=== PATIENT | male | born 1995 | race Two or more races ===

== ENCOUNTER 2016-11-08 01:24 | Emergency (ER) | payer OTHER ==
--- NOTE | 2016-11-08 02:24 | EDDOCDS ---
Nurse's Notes [facility] Name: Casper Currie Age: 21 yrs Sex: Male : 1995 Arrival Date: 11/08/2016 Time: 01:24 Bed TR1 Private MD: Diagnosis: Strain of muscle and tendon of front wall of thorax;Strain of muscle and tendon of back wall of thorax Presentation: 11/08 01:30 Presenting complaint: Patient states: fell on snow board last Saturday, seen at [facility] and given meds, pain over all getting worse, first in back and ribs, now pain that was under left shoulder blade moving into front, mid sternum, comes and goes and is sometimes excruciating and debilitating. Aspirin was not taken prior to arrival. Adult Sepsis Screening: The patient does not have new or worsening altered mentation. Patient's respiratory rate is less than 22. Systolic blood pressure is greater than 100. Patient has a qSOFA score of 0- Negative Sepsis Screen. Suicide/Homicide risk assessment- the patient denies having any suicidal and/or homicidal ideations and does not present with any other emotional, behavioral or mental health complaints. 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 Transition of care: patient was not received from another setting of care. 01:30 Acuity: KING Level 4 [facility] 01:30 Method Of Arrival: Walkin/Carried/Asstd [facility] Triage Assessment: 01:38 General: Appears in no apparent distress, comfortable, Behavior is appropriate for age, [facility] cooperative. Pain: Location: back and chest Pain currently is 9 out of 10 on a pain scale. HIV screening NA for this visit Offered previously. Cardiovascular: Chest pain is described as severe, radiates Does not radiate. episodes are intermittent began comes and goes worse at times, spasmodic is aggravated by. Historical: - Allergies: no known allergies; - Home Meds: 1. Methocarbamol Unknown Oral 1 tab twice a day (Last dose: 11/07/2016 08:00) 2. Tylenol 500 mg Oral 1 tab twice a day (Last dose: 11/07/2016 08:00) 3. Naproxen Unknown Oral 1 tab 2 times per day (Last dose: 11/07/2016 08:00) 4. Flexeril Oral nightly (Last dose: 11/06/2016) - PMHx: none; - PSHx: Appendectomy; - Social history: Smoking status: Patient states was never smoker of tobacco. No barriers to communication noted. - Family history: Not pertinent. - : The pt / caregiver states he / she is not on anticoagulants. Home medication list is obtained from the patient. - Exposure Risk Screening:: None identified. Screenin:19 Screening information is obtained from the patient. Fall risk: No risks identified. [facility] Assistance ADL's: requires no assistance with activities of daily living. Abuse/DV Screen: The patient / caregiver reports he/she is: not in a situation that causes fear, pain or injury. Nutritional screening: No deficits noted. Advance Directives: There is no active DNR order. home support is adequate. Assessment: 02:19 General: Appears in no apparent distress, comfortable, Behavior is appropriate for age, [facility] cooperative. Cardiovascular: Rhythm is regular Chest pain intermittent after snow boarding accident, seen at [facility] twice, xrays x 2. Respiratory: Airway is patent Respiratory effort is even, unlabored, Respiratory pattern is regular, symmetrical. Derm: Skin is pink, warm & dry. Vital Signs: 01:29 BP 131 / 70; Pulse 64; Resp 16; Temp 97.7; Pulse Ox 98% ; Weight 92.99 kg; Height 6 ft. [facility] (182.88 cm); Pain 9/10; 01:29 Body Mass Index 27.80 (92.99 kg, 182.88 cm) [facility] Vitals: 01:29 Log In Time: November 08, 2016 at 01:24. [facility] ED Course: 01:25 Patient visited by Argelia Hughes. gjb 01:25 Patient moved to Waiting gjb 01:34 Triage Initiated cj 01:35 Kenneth New PA is PHCP. btw 01:35 Amarilys He MD is Attending Physician. btw 01:39 Patient moved to Pre RCE ajs 01:40 Patient visited by Kenneth New PA. btw 01:40 Patient moved to Triage 1 [facility] 01:49 Tee Victoria [facility] is Referral Physician. btw 01:56 [facility] Payment Agreement was scanned into [employer] and attached to record. hs2 01:58 Patient moved to TR1 btw 02:19 The patient / caregiver is instructed regarding the plan of care and ED course. Cardiac [facility] monitoring not applicable on this patient. seen and evaluated by JAKUB. 02:19 No IV's were initiated during this patient's visit. No procedures done that require cj assistance. Order Results: There are currently no results for this order. Outcome: 01:49 Discharge ordered by Provider. btw 02:19 Discharge Assessment: Patient awake, alert and oriented x 3. No cognitive and/or cjh functional deficits noted. Patient verbalized understanding of disposition instructions. patient administered narcotics - no. The following High Risk Discharge criteria are identified: None. Discharged to home ambulatory. Condition: good Condition: stable Condition: improved. Discharge instructions given to patient, Instructed on discharge instructions, follow up and referral plans. medication usage, Demonstrated understanding of instructions, medications, Pt was receptive of discharge instructions/ teaching. Prescriptions given X 2. No special radiology studies were completed. Property :Personal belongings accompany Pt. 02:23 Patient left the ED. [facility] Signatures: Kenneth New PA PA btw Slate, Amanda ajs Hafner, Jane, RN RN Argelia Quintana Hillary, Reg Reg hs2 CARLOS
--- NOTE | 2016-11-08 02:24 | EDDOCDS ---
Physician Documentation [facility] Name: Casper Currie Age: 21 yrs Sex: Male : 1995 Arrival Date: 11/08/2016 Time: 01:24 Bed TR1 Private MD: Disposition: 11/08/16 01:49 Discharged to Home/Self Care. Impression: Strain of muscle and tendon of front wall of thorax, Strain of muscle and tendon of back wall of thorax. - Condition is Stable. - Discharge Instructions: Costochondritis, Bxvs-dh-[id number], Thoracic Strain, Zueo-co-Aofd. - Prescriptions for Diclofenac Sodium 75 mg Oral Tablet, Delayed Release (E.C.) - take 1 tablet by ORAL route 2 times per day; 30 tablet. - Medication Reconciliation, Local Pharmacy Hours form. - Follow up: Tee Victoria [facility]; When: Today; Reason: Further diagnostic work-up, Recheck today's complaints, Continuance of care. - Problem is an ongoing problem. - Symptoms are unchanged. Historical: - Allergies: no known allergies; - Home Meds: 1. Methocarbamol Unknown Oral 1 tab twice a day (Last dose: 11/07/2016 08:00) 2. Tylenol 500 mg Oral 1 tab twice a day (Last dose: 11/07/2016 08:00) 3. Naproxen Unknown Oral 1 tab 2 times per day (Last dose: 11/07/2016 08:00) 4. Flexeril Oral nightly (Last dose: 11/06/2016) - PMHx: none; - PSHx: Appendectomy; - Social history: Smoking status: Patient states was never smoker of tobacco. No barriers to communication noted. - Family history: Not pertinent. - : The pt / caregiver states he / she is not on anticoagulants. Home medication list is obtained from the patient. - Exposure Risk Screening:: None identified. Vital Signs: 11/08 01:29 BP 131 / 70; Pulse 64; Resp 16; Temp 97.7; Pulse Ox 98% ; Weight 92.99 kg / 205.01 lbs; [facility] Height 6 ft. (182.88 cm); Pain 9/10; 01:29 Body Mass Index 27.80 (92.99 kg, 182.88 cm) [facility] MDM: 01:55 Financial registration complete. hs2 01:56 [facility] Payment Agreement was scanned into [employer] and attached to record. hs2 Signatures: Kenneth New PA PA btw Hafner, Jane, RN RN [facility] Ofelia Martinez, Reg Reg hs2 The chart was reviewed and I authenticate all verbal orders and agree with the evaluation and treatment provided.Attachments: 01:56 [facility] Payment Agreement hs2 MTDD
--- NOTE | 2016-11-10 03:24 | EDDOCDS ---
Physician Documentation [facility] Name: Casper Currie Age: 21 yrs Sex: Male : 1995 Arrival Date: 11/08/2016 Time: 01:24 Bed TR1 Private MD: Disposition: 11/08/16 01:49 Discharged to Home/Self Care. Impression: Strain of muscle and tendon of front wall of thorax, Strain of muscle and tendon of back wall of thorax. - Condition is Stable. - Discharge Instructions: Costochondritis, Flxi-gh-Qgbl, Thoracic Strain, Gpzi-hd-Dyfi. - Prescriptions for Diclofenac Sodium 75 mg Oral Tablet, Delayed Release (E.C.) - take 1 tablet by ORAL route 2 times per day; 30 tablet. - Medication Reconciliation, Local Pharmacy Hours form. - Follow up: Tee Victoria [facility]; When: Today; Reason: Further diagnostic work-up, Recheck today's complaints, Continuance of care. - Problem is an ongoing problem. - Symptoms are unchanged. Historical: - Allergies: no known allergies; - Home Meds: 1. Methocarbamol Unknown Oral 1 tab twice a day (Last dose: 11/07/2016 08:00) 2. Tylenol 500 mg Oral 1 tab twice a day (Last dose: 11/07/2016 08:00) 3. Naproxen Unknown Oral 1 tab 2 times per day (Last dose: 11/07/2016 08:00) 4. Flexeril Oral nightly (Last dose: 11/06/2016) - PMHx: none; - PSHx: Appendectomy; - Social history: Smoking status: Patient states was never smoker of tobacco. No barriers to communication noted. - Family history: Not pertinent. - : The pt / caregiver states he / she is not on anticoagulants. Home medication list is obtained from the patient. - Exposure Risk Screening:: None identified. Vital Signs: 11/08 01:29 BP 131 / 70; Pulse 64; Resp 16; Temp 97.7; Pulse Ox 98% ; Weight 92.99 kg / 205.01 lbs; [facility] Height 6 ft. (182.88 cm); Pain 9/10; 01:29 Body Mass Index 27.80 (92.99 kg, 182.88 cm) [facility] MDM: 01:55 Financial registration complete. hs2 01:56 [facility] Payment Agreement was scanned into [employer] and attached to record. hs2 13:53 T-Sheet-- Draft Copy was scanned into [employer] and attached to record. gb Signatures: Aby Kenny, Reg Reg gb Kenneth New PA PA btw Hafner, Jane, RN RN [facility] Ofelia Martinez, Reg Reg hs2 The chart was reviewed and I authenticate all verbal orders and agree with the evaluation and treatment provided.Attachments: 01:56 [facility] Payment Agreement hs2 13:53 T-Sheet-- Draft Copy gb Chart Complete MTDD
--- NOTE | 2016-11-10 03:24 | EDDOCDS ---
[facility] Name: Casper Currie Age: 21 yrs Sex: Male : 1995 Arrival Date: 11/08/2016 Time: 01:24 Bed TR1 Private MD: Disposition: 11/08/16 01:49 Discharged to Home/Self Care. Impression: Strain of muscle and tendon of front wall of thorax, Strain of muscle and tendon of back wall of thorax. - Condition is Stable. - Discharge Instructions: Costochondritis, Dtby-zx-Fhpf, Thoracic Strain, Dfbd-qr-Jibr. - Prescriptions for Diclofenac Sodium 75 mg Oral Tablet, Delayed Release (E.C.) - take 1 tablet by ORAL route 2 times per day; 30 tablet. - Medication Reconciliation, Local Pharmacy Hours form. - Follow up: Tee Victoria [facility]; When: Today; Reason: Further diagnostic work-up, Recheck today's complaints, Continuance of care. - Problem is an ongoing problem. - Symptoms are unchanged. Historical: - Allergies: no known allergies; - Home Meds: 1. Methocarbamol Unknown Oral 1 tab twice a day (Last dose: 11/07/2016 08:00) 2. Tylenol 500 mg Oral 1 tab twice a day (Last dose: 11/07/2016 08:00) 3. Naproxen Unknown Oral 1 tab 2 times per day (Last dose: 11/07/2016 08:00) 4. Flexeril Oral nightly (Last dose: 11/06/2016) - PMHx: none; - PSHx: Appendectomy; - Social history: Smoking status: Patient states was never smoker of tobacco. No barriers to communication noted. - Family history: Not pertinent. - : The pt / caregiver states he / she is not on anticoagulants. Home medication list is obtained from the patient. - Exposure Risk Screening:: None identified. Vital Signs: 11/08 01:29 BP 131 / 70; Pulse 64; Resp 16; Temp 97.7; Pulse Ox 98% ; Weight 92.99 kg / 205.01 lbs; [facility] Height 6 ft. (182.88 cm); Pain 9/10; 01:29 Body Mass Index 27.80 (92.99 kg, 182.88 cm) [facility] MDM: 01:55 Financial registration complete. hs2 01:56 [facility] Payment Agreement was scanned into [employer] and attached to record. hs2 13:53 T-Sheet-- Draft Copy was scanned into [employer] and attached to record. gb Signatures: Aby Kenny, Reg Reg gb Kenneth New PA PA btw Hafner, Jane, RN RN [facility] Ofelia Martinez, Reg Reg hs2 The chart was reviewed and I authenticate all verbal orders and agree with the evaluation and treatment provided.Attachments: 01:56 [facility] Payment Agreement hs2 13:53 T-Sheet-- Draft Copy gb Chart Complete MTDD
--- NOTE | 2016-11-10 03:24 | EDDOCDS ---
Nurse's Notes [facility] Name: Casper Currie Age: 21 yrs Sex: Male : 1995 Arrival Date: 11/08/2016 Time: 01:24 Bed TR1 Private MD: Diagnosis: Strain of muscle and tendon of front wall of thorax;Strain of muscle and tendon of back wall of thorax Presentation: 11/08 01:30 Presenting complaint: Patient states: fell on snow board last Saturday, seen at [facility] and given meds, pain over all getting worse, first in back and ribs, now pain that was under left shoulder blade moving into front, mid sternum, comes and goes and is sometimes excruciating and debilitating. Aspirin was not taken prior to arrival. Adult Sepsis Screening: The patient does not have new or worsening altered mentation. Patient's respiratory rate is less than 22. Systolic blood pressure is greater than 100. Patient has a qSOFA score of 0- Negative Sepsis Screen. Suicide/Homicide risk assessment- the patient denies having any suicidal and/or homicidal ideations and does not present with any other emotional, behavioral or mental health complaints. 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 Transition of care: patient was not received from another setting of care. 01:30 Acuity: [facility] Level 4 [facility] 01:30 Method Of Arrival: Walkin/Carried/Asstd [facility] Triage Assessment: 01:38 General: Appears in no apparent distress, comfortable, Behavior is appropriate for age, [facility] cooperative. Pain: Location: back and chest Pain currently is 9 out of 10 on a pain scale. HIV screening NA for this visit Offered previously. Cardiovascular: Chest pain is described as severe, radiates Does not radiate. episodes are intermittent began comes and goes worse at times, spasmodic is aggravated by. Historical: - Allergies: no known allergies; - Home Meds: 1. Methocarbamol Unknown Oral 1 tab twice a day (Last dose: 11/07/2016 08:00) 2. Tylenol 500 mg Oral 1 tab twice a day (Last dose: 11/07/2016 08:00) 3. Naproxen Unknown Oral 1 tab 2 times per day (Last dose: 11/07/2016 08:00) 4. Flexeril Oral nightly (Last dose: 11/06/2016) - PMHx: none; - PSHx: Appendectomy; - Social history: Smoking status: Patient states was never smoker of tobacco. No barriers to communication noted. - Family history: Not pertinent. - : The pt / caregiver states he / she is not on anticoagulants. Home medication list is obtained from the patient. - Exposure Risk Screening:: None identified. Screenin:19 Screening information is obtained from the patient. Fall risk: No risks identified. [facility] Assistance ADL's: requires no assistance with activities of daily living. Abuse/DV Screen: The patient / caregiver reports he/she is: not in a situation that causes fear, pain or injury. Nutritional screening: No deficits noted. Advance Directives: There is no active DNR order. home support is adequate. Assessment: 02:19 General: Appears in no apparent distress, comfortable, Behavior is appropriate for age, [facility] cooperative. Cardiovascular: Rhythm is regular Chest pain intermittent after snow boarding accident, seen at [facility] twice, xrays x 2. Respiratory: Airway is patent Respiratory effort is even, unlabored, Respiratory pattern is regular, symmetrical. Derm: Skin is pink, warm & dry. Vital Signs: 01:29 BP 131 / 70; Pulse 64; Resp 16; Temp 97.7; Pulse Ox 98% ; Weight 92.99 kg; Height 6 ft. [facility] (182.88 cm); Pain 9/10; 01:29 Body Mass Index 27.80 (92.99 kg, 182.88 cm) [facility] Vitals: 01:29 Log In Time: November 08, 2016 at 01:24. [facility] ED Course: 01:25 Patient visited by Argelia Hughes. gjb 01:25 Patient moved to Waiting gjb 01:34 Triage Initiated cj 01:35 Kenneth New PA is PHCP. btw 01:35 Amarilys He MD is Attending Physician. btw 01:39 Patient moved to Pre RCE ajs 01:40 Patient visited by Kenneth New PA. btw 01:40 Patient moved to Triage 1 [facility] 01:49 Tee Victoria [facility] is Referral Physician. btw 01:56 [facility] Payment Agreement was scanned into [employer] and attached to record. hs2 01:58 Patient moved to TR1 btw 02:19 The patient / caregiver is instructed regarding the plan of care and ED course. Cardiac [facility] monitoring not applicable on this patient. seen and evaluated by JAKUB. 02:19 No IV's were initiated during this patient's visit. No procedures done that require [facility] assistance. 13:53 T-Sheet-- Draft Copy was scanned into [employer] and attached to record. Order Results: There are currently no results for this order. Outcome: 01:49 Discharge ordered by Provider. btw 02:19 Discharge Assessment: Patient awake, alert and oriented x 3. No cognitive and/or cjh functional deficits noted. Patient verbalized understanding of disposition instructions. patient administered narcotics - no. The following High Risk Discharge criteria are identified: None. Discharged to home ambulatory. Condition: good Condition: stable Condition: improved. Discharge instructions given to patient, Instructed on discharge instructions, follow up and referral plans. medication usage, Demonstrated understanding of instructions, medications, Pt was receptive of discharge instructions/ teaching. Prescriptions given X 2. No special radiology studies were completed. Property :Personal belongings accompany Pt. 02:23 Patient left the ED. [facility] Signatures: Aby Kenny, Reg Reg gb Kenneth New PA PA btElizabeth Rendon Jane, RN RN [facility] Argelia Hughes Hillary, Reg Reg hs2 Chart Complete MTDD
== END 2016-11-08 02:23 | disposition home or self-care (01) ==
LOC: M ED 01:24
DX: R07.89 Other chest pain (principal); Z79.899 Other long term (current) drug therapy; Z79.1 Long term (current) use of non-steroidal anti-inflammatories (NSAID)

== ENCOUNTER 2017-07-25 14:44 | Inpatient (IN) | payer OTHER ==
[~2017-07-25] VITALS: Ht 182.9 cm; Wt 90.0 kg
[2017-07-25] MEDS ORDERED: BUPR1TAB53 PO (14:54)
[2017-07-25 17:53] LABS: METHADONE URINE NEGATIVE (NEGATIVE)
[2017-07-25 18:36] LABS: MEAN CORPUSCULAR HEMOGLOBIN 31.5 pg (27.0-33.0); MEAN CORPUSCULAR VOLUME 87.4 fl (80.0-96.0); RED CELL DISTRIBUTION WIDTH 11.9 % (11.5-14.5); WHITE BLOOD COUNT 5.7 10^3/uL (4.0-10.0)
[2017-07-25 18:51] LABS: ALBUMIN 4.7 GM/DL (3.2-5.2); ALBUMIN/GLOBULIN RATIO 1.42 (1.00-1.93); ALKALINE PHOSPHATASE 28 U/L (45-117); ALT/SGPT 63 U/L (12-78); ANION GAP 7 MEQ/L (8-16); AST/SGOT 199 U/L (15-37); BILIRUBIN,DIRECT 0.2 MG/DL (0.0-0.2); BILIRUBIN,TOTAL 0.9 MG/DL (0.2-1.0); BLOOD UREA NITROGEN 13 MG/DL (7-18); CALCIUM LEVEL 9.5 MG/DL (8.5-10.1); CARBON DIOXIDE LEVEL 27 MEQ/L (21-32); CHLORIDE LEVEL 106 MEQ/L (98-107); CREATININE FOR GFR 1.14 MG/DL (0.70-1.30); GLOMERULAR FILTRATION RATE > 60.0 (>60); GLUCOSE, FASTING 85 MG/DL (70-105); SODIUM LEVEL 140 MEQ/L (136-145)
[2017-07-25] MEDS ORDERED: MOM 30ML SUSPENSION UDC PO PRN (19:15)
[2017-07-25] MEDS ORDERED: MAALOX 30 ML SUSP *UDC PO PRN (19:15)
[2017-07-25] MEDS ORDERED: ACETAMINOPHEN TAB 650MG DOSE (2X325MG) PO PRN (19:15)
[2017-07-25 20:46] VITALS: BP 129/70
[2017-07-25] MEDS: traZODone 50 MG TAB PO PRN (21:14)
[2017-07-26 06:00] VITALS: BP 131/71
--- NOTE | 2017-07-26 08:56 | HPEPDOC ---
[facility] Medical History & Physical Date of Admission Jul 25, 2017 History and Physical PCP: [facility] ATTENDING: Dr. Samuel Haider HPI: 22yoM admitted to [facility] for depressive disorder unspecified, being medically examined today. No acute medical complaints today. Denies any fevers, chills, weakness, fatigue, HENDRICKS, CP, SOB, cough, palpitations, abdominal pain, N/V /D or changes in bowel or bladder habits. PMHx: Anxiety Depression PSHX: Appendectomy [place] teeth extraction SOCHX: Resides in: [facility], from [place]. 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 ETOH: 3-4 ties per month, 3-4 drinks. Illicit Drugs: marijuana 2-3 times per week, Pt states quit 2-3 weeks ago. IV Drug Use: Denies Tattoos done unprofessionally: Denies FAMHX: Pt states he is adopted and is unaware of biological FH. Children: none ROS: As noted in HPI, otherwise 11pt ROS of systems reviewed and unremarkable. PE: GEN: 22yoM, appears stated age. Well-nourished, well developed. No acute distress. Alert and oriented x 3. Pleasant, interactive. HEENT: Normocephalic, atraumatic. Pupils are equal, round, and reactive to light. Extraocular movements are intact. No nystagmus appreciated. Sclera are nonicteric. Conjunctiva without injection. Nose midline. Nasal turbinates without bogginess. EACs both patent BL. TMs both visualized and erickson with good cone of light, no bulging or erythema. No facial asymmetry. Moist mucous membranes. Dentition fair. Pharynx pink and moist, no cobblestoning. Neck supple , trachea midline. No lymphadenopathy or thyromegaly appreciated. CHEST: Regular rate and rhythm, +S1, +S2 LUNGS: Clear to auscultation bilaterally. No wheezes, rales, or rhonchi. Breathing appears symmetric and easy. Patient is speaking in full sentences. No accessory muscle use. ABD: Round, soft, non-tender, non-distended. +Bowel sounds throughout. No rebound or guarding. No costovertebral angle tenderness. EXT: Pulses 2+ bilaterally dorsalis pedis and radial. No lower extremity edema appreciated. SKIN: [place], dry, warm. Capillary refill <2sec. No rashes. NEURO: Alert and oriented x 3. Cranial nerves III-XII are intact. No focal deficits appreciated. EKG: pending. A&P: 22yoM admitted to [facility] for depressive disorder unspecified 1. Psych. Plan per Psychiatry. Obtain baseline EKG to assure the safety of psychiatric medications as they can prolong the QT interval. 2. Nicotine dependence. Patch available. 3. Elevated AST. Recheck CMP in Am. Add Hepatitis profile to admission labs. 4. Follow up with PCP on discharge. 5. H/O Substance use. Per psychiatry. Vital Signs Vital Signs Date Time Temp Pulse Resp B/P (MAP) Pulse Ox O2 Delivery O2 Flow Rate FiO2 07/26/17 06:00 98.4 90 16 131/71 (91) Room Air 07/25/17 20:46 99 Laboratory Data Labs 24H Laboratory Tests 2 07/25/17 15:23: Anion Gap 7L, Glomerular Filtration Rate > 60.0, Calcium Level 9.5, Aspartate Amino Transf (AST/SGOT) 199H, Alanine Aminotransferase (ALT/SGPT) 63, Alkaline Phosphatase 28L, Total Bilirubin 0.9, Direct Bilirubin 0.2, Total Protein 8.0, Albumin 4.7, Albumin/Globulin Ratio 1.42, Thyroid Stimulating Hormone (TSH) 1.760, Salicylates Level < 1.7L, Urine Amphetamines Screen NEGATIVE, Urine Benzodiazepines Screen NEGATIVE, Urine Opiates Screen NEGATIVE, Urine Methadone Screen NEGATIVE, Acetaminophen Level < 2.0L, Urine Barbiturates Screen NEGATIVE , Urine Phencyclidine Screen NEGATIVE, Urine Cocaine Metabolite Screen NEGATIVE , Urine Cannabinoids Screen POSITIVEH, Ethyl Alcohol Level < 0.003 CBC/BMP Laboratory Tests 07/25/17 15:23 Red Blood Count 5.08, Mean Corpuscular Volume 87.4, Mean Corpuscular Hemoglobin 31.5, Mean Corpuscular Hemoglobin Concent 36.0, Red Cell Distribution Width 11.9 Home Medications Scheduled Bupropion HCl (Bupropion HCl ER) 150 Mg Tab, 300 MG PO DAILY Allergies Coded Allergies: No Known Drug Allergy (Verified Allergy, Unknown, 07/25/17) Lea Medina Jul 26, 2017 08:56
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
[2017-07-26] MEDS: buPROPion **XL** TABLET 150MG (WELLBUTRIN XL) PO SCH (11:18)
[2017-07-26 18:39] VITALS: BP 133/81
[2017-07-26] MEDS: traZODone 50 MG TAB PO PRN (20:56)
--- NOTE | 2017-07-26 23:37 | ECGEPIP ---
Stationary ECG Study [facility] Test Date: 2017-07-26 Pat Name: ANNA MARIE ALMONTE Department: Room: [place] [address] Gender: M Billet Heater: : 1995 Requested By: Lea Medina Order Number: [id number] Reading MD: Irving Thomson Measurements Intervals [place] Rate: 53 P: 46 PA: 130 QRS: 87 QRSD: 98 T: 31 QT: 396 QTc: 372 Interpretive Statements SINUS BRADYCARDIA WITH OCCASIONAL SUPRAVENTRICULAR PREMATURE COMPLEXES ST ELEVATION, PROBABLY EARLY REPOLARIZATION NO PRIOR TRACING IN THE SYSTEM Electronically Signed On 07-26-2017 23:37:13 EDT by Irving Thomson
[2017-07-27 06:42] VITALS: BP 140/71
[2017-07-27] MEDS: buPROPion **XL** TABLET 150MG (WELLBUTRIN XL) PO SCH (08:09)
[2017-07-27 08:24] LABS: ALBUMIN 4.1 GM/DL (3.2-5.2); ALBUMIN/GLOBULIN RATIO 1.37 (1.00-1.93); ALKALINE PHOSPHATASE 26 U/L (45-117); ALT/SGPT 63 U/L (12-78); ANION GAP 6 MEQ/L (8-16); AST/SGOT 125 U/L (15-37); BILIRUBIN,TOTAL 0.8 MG/DL (0.2-1.0); BLOOD UREA NITROGEN 16 MG/DL (7-18); CALCIUM LEVEL 9.2 MG/DL (8.5-10.1); CARBON DIOXIDE LEVEL 29 MEQ/L (21-32); CHLORIDE LEVEL 106 MEQ/L (98-107); GLOMERULAR FILTRATION RATE > 60.0 (>60); GLUCOSE, FASTING 87 MG/DL (70-105); SODIUM LEVEL 141 MEQ/L (136-145); TOTAL PROTEIN 7.1 GM/DL (6.4-8.2)
[2017-07-27] MEDS: hydrOXYzine 25 MG TAB PO PRN (17:14)
[2017-07-27 18:00] VITALS: BP 137/84
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
[2017-07-27] MEDS: traZODone 50 MG TAB PO PRN (21:42)
[2017-07-28 06:00] VITALS: BP 142/60
[2017-07-28] MEDS: hydrOXYzine 25 MG TAB PO PRN (08:24)
[2017-07-28] MEDS: buPROPion **XL** TABLET 150MG (WELLBUTRIN XL) PO SCH (08:24)
[2017-07-28] MEDS ORDERED: hydrOXYzine 25 MG TAB PO PRN (12:45)
[2017-07-28] MEDS ORDERED: OLANZapine 5 MG TAB PO PRN (17:00)
[2017-07-28 18:00] VITALS: BP 126/62
--- NOTE | 2017-07-28 20:34 | MHIPNPDOC ---
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 He was told he would never be employed, his family would disown him and several other derogatory things that cause him to feel guilt an danger VITAL SIGNS: See below. NEW TEST RESULTS: None CURRENT MEDICATIONS: See below. MENTAL STATUS EXAMINATION: Patient is a 22-year old male, who is alert, cooperative, with poor eye contact , dressed in hospital clothes with good hygiene. Speech: Is spontaneous and fluent. Language skills are normal. Thought processes including: Intact. Thought content: Coherent. Abstract reasoning, and computation: Not assessed at this time. Description of associations: Good Description of abnormal or psychotic thoughts: He denies suicidal and homicidal ideation, denies delusions and denies auditory and visual hallucinations. Judgment: Improved. Insight: Improved. Orientation: Oriented 3. Recent and remote memory: Intact. Attention span and concentration: Fair. Language: Normal. Fund of knowledge: Fair. Mood: Euthymic. Affect: Euthymic, congruent with mood. DIAGNOSES: 1. PTSD 2. Adjustment disorder with depressed and anxious mood. ASSESSMENT: Patient is stable, he says he feels anxious and for that reason Atarax was increased to 75 mg by mouth every 4 hours when necessary for anxiety but he went to one of the nurses aids and told him Atarax really doesn't help him, he wanted something stronger. Patient is being discharged tomorrow, this engineering writer believes patient has drug seeking behavior because one of his problems was marijuana. This patient refused to give him a benzodiazepine and ordered Zyprexa when necessary for anxiety MANAGEMENT PLAN: We'll continue with the same treatment plan, but having increased Atarax to 75 mg by mouth every 4 hours when necessary for anxiety and he also has Zyprexa for anxiety as of today TIME SPENT: 30 minutes. Vital Signs Vital Signs Date Time Temp Pulse Resp B/P (MAP) Pulse Ox O2 Delivery O2 Flow Rate FiO2 07/28/17 18:00 98.6 101 16 126/62 (83) 07/28/17 09:53 Room Air 07/25/17 20:46 99 Current Medications Current Medications Acetaminophen (Tylenol Tab) 650 mg Q6HP PRN PO HEADACHE or DISCOMFORT; Start at 19:15; Stop 08/24/17 at 19:14 Al Hydrox/Mg Hydrox/Simethicone (Mylanta) 30 ml Q4HP PRN PO HEARTBURN/ INDIGESTION; Start 07/25/17 at 19:15; Stop 08/24/17 at 19:14 Bupropion HCl (Wellbutrin Xl) 300 mg QAM PO Last administered on 07/28/17 08: 24; Start 07/26/17 at 09:00; Stop 08/25/17 at 08:59 Home Med (Med Rec Complete!) ASDIRECTED XX ; Start 07/25/17 at 19:30; Stop at 19:38; Status DC Hydroxyzine HCl (Atarax) 25 mg Q6HP PRN PO ANXIETY Last administered on 08:24; Start 07/26/17 at 11:15; Stop 07/28/17 at 12:38; Status DC Hydroxyzine HCl (Atarax) 75 mg Q4HP PRN PO ANXIETY Last administered on 13:03; Start 07/28/17 at 12:45; Stop 08/25/17 at 11:14 Magnesium Hydroxide (Milk Of Magnesia) 30 ml DAILYPRN PRN PO CONSTIPATION; Start 07/25/17 at 19:15; Stop 08/24/17 at 19:14 Olanzapine (ZyPREXA) 5 mg Q4HP PRN PO ANXIETY/AGITATION Last administered on 19:03; Start 07/28/17 at 17:00; Stop 08/27/17 at 16:59 Trazodone HCl (Desyrel) 50 mg QHSP PRN PO INSOMNIA Last administered on 21:42; Start 07/25/17 at 19:15; Stop 08/24/17 at 19:14 Allergies Coded Allergies: No Known Drug Allergy (Verified Allergy, Unknown, 07/25/17) KIERSTEN REHMAN MD Jul 28, 2017 20:34
[2017-07-29 06:36] VITALS: BP 123/81
[2017-07-29] MEDS: buPROPion **XL** TABLET 150MG (WELLBUTRIN XL) PO SCH (08:07)
[2017-07-29] MEDS ORDERED: HYDR-3363 PO (09:10)
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
== END 2017-07-29 11:15 | disposition home or self-care (01) | DRG 882 ==
LOC: M ED 14:44 → M ED INP 19:09 → M PSY 19:41
PROVIDERS: ADMIT Psychiatry & Neurology Child & Adolescent Psychiatry; ATTEND Psychiatry & Neurology Child & Adolescent Psychiatry
DX: F43.10 Post-traumatic stress disorder, unspecified (principal); F43.23 Adjustment disorder with mixed anxiety and depressed mood; F17.200 Nicotine dependence, unspecified, uncomplicated